=== PATIENT | female | born 1950 | race Caucasian/White ===

== ENCOUNTER → 2024-08-05 16:43 | Outpatient (REF) | payer MEDICARE, OTHER, SELFPAY | LOC: REG 16:43 | PROVIDERS: ATTENDING PHYSICIAN Internal Medicine Critical Care Medicine | DX: R06.09 Other forms of dyspnea (principal) | CPT/HCPCS: 87070; 87205 ==

== ENCOUNTER → 2024-09-26 11:33 | Outpatient (REF) | payer MEDICARE, OTHER, SELFPAY | LOC: REG 11:33 | PROVIDERS: ATTENDING PHYSICIAN Internal Medicine Critical Care Medicine; FAMILY PHYSICIAN Internal Medicine | DX: R05.3 Chronic cough (principal) | CPT/HCPCS: 36415; 87205 ==

== ENCOUNTER → 2024-12-24 10:23 | Outpatient (REF) | payer MEDICARE, OTHER, SELFPAY | LOC: HWRAD 10:23 | PROVIDERS: ATTENDING PHYSICIAN Internal Medicine Critical Care Medicine; FAMILY PHYSICIAN Internal Medicine | DX: R06.09 Other forms of dyspnea (principal); J47.9 Bronchiectasis, uncomplicated; M32.9 Systemic lupus erythematosus, unspecified; D84.9 Immunodeficiency, unspecified; Z12.13 Encounter for screening for malignant neoplasm of small intestine | CPT/HCPCS: 71250; 77063; 77067 ==